=== PATIENT | male | born 1990 | race African-American/Black ===

== ENCOUNTER 2016-12-21 23:38 | Emergency (ER) | payer OTHER ==
[2016-12-21 23:46] VITALS: BP 143/89
== END 2016-12-22 00:39 | disposition other institution (70) ==
LOC: ED 23:38
DX: Z02.89 Encounter for other administrative examinations (principal); S21.139A Puncture wound without foreign body of unspecified front wall of thorax without penetration into thoracic cavity, initial encounter; F17.210 Nicotine dependence, cigarettes, uncomplicated; W22.8XXA Striking against or struck by other objects, initial encounter; Y93.89 Activity, other specified; Y99.8 Other external cause status; Y92.89 Other specified places as the place of occurrence of the external cause